=== PATIENT | female | born 1990 | race Caucasian/White ===

== ENCOUNTER 2019-09-05 06:52 | Observation (INO) | payer BC ==
[2019-09-05 07:18] VITALS: BMI 28.1
[2019-09-05] MEDS ORDERED: SODIUM CHLORIDE 0.9% 500 ML INFUS.BAG IV ONE (07:56)
[2019-09-05] MEDS ORDERED: ACETAMINOPHEN 1000 MG/100 ML VIAL (NON FORMULARY) IVPB ONE (08:02)
--- NOTE | 2019-09-05 08:02 | PDOC ---
History of Present Illness - General Chief Complaint: Pain Stated Complaint: ABD PAIN Time Seen by Provider: 09/05/19 07:34 History Source: Patient Exam Limitations: Language Barrier - History of Present Illness Travel History: No Initial Comments: 09/05/19 08:09 28y F with PMH of Gallstones presenting to ED with complaints of RUQ abdominal pain that started suddenly 2h ago. Pain is constant and crampy. She has had similar pain in the past but not as strong. She says she had tacos and 2 glasses of whiskey at 2am today. She denies nausea, vomiting, diarrhea, hematuria, dysuria, chest pain, fevers. Endorses chills and some sob. Other than abdominoplasty 6y ago, she has not had any other surgeries. She has an IUD. She says she took ampicillin for the pain. PMD: PMH: see hpi PSH: see hpi Meds: none Allergies: nkda Past History - Past Medical History Allergies/Adverse Reactions: Allergies Allergy/AdvReac Type Severity Reaction Status Date / Time No Known Allergies Allergy Verified 09/05/19 07:15 Home Medications: Ambulatory Orders Pantoprazole Sodium [Protonix -] 40 mg PO DAILY #30 tablet.ec 09/05/19 COPD: No GI Disorders: Yes (gallstones) - Surgical History Abdominal Surgery: Yes (patric march) - Psycho Social/Smoking Cessation Hx Smoking History: Never smoked Have you smoked in the past 12 months: No Information on smoking cessation initiated: No Hx Alcohol Use: No Drug/Substance Use Hx: No Review of Systems - Review of Systems Constitutional: Yes: Chills. No: Fever Respiratory: Yes: Shortness of Breath Cardiac (ROS): No: Symptoms Reported ABD/GI: Yes: See HPI : No: Symptoms Reported Musculoskeletal: No: Symptoms Reported Integumentary: No: Symptoms Reported Neurological: No: Symptoms reported *Physical Exam - Vital Signs Last Vital Signs Temp Pulse Resp BP Pulse Ox 97.8 F 52 L 18 93/41 L 99 09/05/19 07:16 09/05/19 07:16 09/05/19 07:16 09/05/19 07:16 09/05/19 07:16 - Physical Exam General Appearance: Yes: Nourished, Appropriately Dressed. No: Apparent Distress HEENT: positive: EOMI, BAKARI. negative: Scleral Icterus (R), Scleral Icterus (L) Neck: positive: Trachea midline, Supple Respiratory/Chest: positive: Lungs Clear, Normal Breath Sounds. negative: Crackles, Rales, Rhonchi, Stridor, Wheezing Cardiovascular: positive: Regular Rhythm, Regular Rate, S1, S2. negative: Edema , JVD, Murmur Vascular Pulses: Dorsalis-Pedis (R): 2+, Doralis-Pedis (L): 2+ Gastrointestinal/Abdominal: positive: Normal Bowel Sounds, Soft, Tenderness ( epigastric, ruq tenderness. ), Other (negative ferris's). negative: Distended, Guarding, Rebound Musculoskeletal: negative: CVA Tenderness Extremity: positive: Normal Capillary Refill Integumentary: positive: Normal Color, Dry, Warm. negative: Jaundice Neurologic: positive: legal administrative assistant II-XII NML intact, Fully Oriented, Alert, Normal Mood/ Affect, Normal Response, Motor Strength / ED Treatment Course - LABORATORY CBC & Chemistry Diagram: 09/05/19 08:21 09/05/19 08:21 Medical Decision Making - Medical Decision Making 09/05/19 09:17 28y F with pmh of gallstones presenting to ER with ruq abdominal pain. She had tacos and whiskey. vitals; low bp, bradycardic. Afebrile ruq and epigastric tenderness. cholelithiasis, choledocolithasis, cholecystitis, pancreatitis, gastritis, pud -labs ordered -NS and ofirmev. -RUQ sono 09/05/19 15:30 chem wnl, no obstruction seen with labs. wbc 11.2 pt still having pain. ruq sono shows stone in gb, no fluid, no gbw thickening, cbd mildly dilated at 5mm. will admit for symptomatic cholelithiasis. Discharge - Discharge Information Problems reviewed: Yes Clinical Impression/Diagnosis: Cholelithiasis Qualifiers: Cholelithiasis location: gallbladder Cholecystitis presence: without cholecystitis Biliary obstruction: without biliary obstruction Qualified Code(s) : K80.20 - Calculus of gallbladder without cholecystitis without obstruction Condition: Improved - Admission Yes - Follow up/Referral - Patient Discharge Instructions - Post Discharge Activity
--- NOTE | 2019-09-05 08:12 | PDOC ---
Attending Attestation - Resident Resident Name: Chioma Morelos - ED Attending Attestation I have performed the following: I have examined & evaluated the patient, The case was reviewed & discussed with the resident, I agree w/resident's findings & plan, Exceptions are as noted - HPI HPI: 09/05/19 08:58 28 years old with past medical history significant for cholelithiasis presents to the ED with right upper quadrant pain. No fever no chills positive nausea no vomiting symptoms are moderate to severe persistent constant occurred after eating tacos last night - Physicial Exam PE: 09/05/19 08:58 Vitals: Triage Vital signs reviewedGeneral Appearance: No acute distress, well nourished well developed, Head: Atraumatic, Cardiac: Regular rate and rhythym, no murmurs, no rubs, no gallops, Lungs: Clear to auscultation bilateral, good air movement bilaterally, Abdomen: Soft, non distended, normal bowel sounds, right upper quadrant tenderness to palpation Extremities: Full range of motion to all extremities, no cyanosis, clubbing, or edema Psych: Normal mood, normal affect - Medical Decision Making 09/05/19 15:43 Symptomatic cholelithiasisWith dilated CBD slightly We will admit to medicine for further management
[2019-09-05] MEDS ORDERED: ACETAMINOPHEN INJECTION 100 ML IVPB ONE (08:22)
[2019-09-05 08:48] LABS: BASO % 0.3 % (0-2.0); EOS % 0.8 % (0-4.5); HEMATOCRIT 42.3 % (32.4-45.2); LYMPH % 23.6 % (8-40); MCH 29.9 pg (25.7-33.7); MCHC 33.1 g/dl (32.0-36.0); MEAN CELL VOLUME 90.4 fl (80-96); MEAN PLT VOLUME 8.1 fl (7.5-11.1); MONO % 4.3 % (3.8-10.2); PLATELET COUNT 308 K/MM3 (134-434); RBC 4.68 M/mm3 (3.60-5.2); RDW 13.2 % (11.6-15.6); WHITE BLOOD COUNT 11.6 K/mm3 (4.0-10.0)
[2019-09-05 09:14] LABS: INR 1.03 (0.83-1.09); PROTHROMBIN TIME (PATIENT) 12.2 SEC (9.7-13.0)
[2019-09-05 09:16] LABS: ALBUMIN 3.9 g/dl (3.4-5.0); BILIRUBIN,TOTAL 0.5 mg/dL (0.2-1); BLOOD UREA NITROGEN 17.5 mg/dL (7-18); CALCIUM 9.3 mg/dL (8.5-10.1); POTASSIUM 3.7 mmol/L (3.5-5.1); TOT PROT 7.3 g/dl (6.4-8.2)
[2019-09-05 09:17] LABS: ACTIVATED PTT 25.7 SECONDS (25.2-36.5)
[2019-09-05] MEDS ORDERED: PANTOPRAZOLE 40 MG TABLET PO ONE (12:13)
--- NOTE | 2019-09-05 12:22 | PN ---
Teaching Attending Note Name of Resident: Luis Platt ATTENDING PHYSICIAN STATEMENT I saw and evaluated the patient. I reviewed the resident's note and discussed the case with the resident. I agree with the resident's findings and plan as documented. SUBJECTIVE: Seen in ER; RUQ pain for 1-2 days with meals that has resolved at this point with negative exam. CBD without eulalio dilation upon review of imaging with surgery and LFTs within normal limits; no pericholecystic fluid/wall thickening. Does have gallstone present. No prior abdominal surgeries, no history alcohol abuse, stable hemodynamics. No PMH and denies taking home meds. Negative hcg. WBC only marginally over unl and likely reactive and not clinically significant. She is agreeable to go home. I discussed the case with Dr. Blanton and TEGAN James from surgery and they agree she is stable to followup as an outpatient and referral was given. She will be referred to Dr. Amaro for primary care and can have CMP prior to the followup. Risks for gallstones for this patient were weight, age, multiple children. Instructions have been requested to be provided in Monegasque. She is not nauseous or in any pain now; she can use PRN APAP at home for her symptoms and was given a trial of protonix in case there is an element of GERD that she can decide on continuing or not with her primary. PMH, PSH, FH, SH reviewed; agree with resident note. 10 sys ROS done and negative aside from HPI OBJECTIVE: Labs and imaging personally reviewed NAD AAOx3 resting in bed NT ND +BS; negative ferris's RRR s1/2 no mgr Lungs CTAB, w/ sym exp CN2-12 wnl, no fnd Normal mood, appropriate behavior US results discussed above Hospital course delineated above This note applies to same day admission h and p; for further details and exam for billing, etc. please see resident documentation which I will sign.
[2019-09-05 14:38] LABS: EPI CELLS 4.3 /HPF (0-5/HPF); HYALINE CASTS 0 /lpf (0-8); PH,URINE 6.5 (5.0-8.0); URINE APPEARANCE CLEAR; URINE BACTERIA 64.8 /hpf (NEGATIVE); URINE BILIRUBIN NEGATIVE (NEGATIVE); URINE COLOR YELLOW; URINE GLUCOSE (UA) NEGATIVE (NEGATIVE); URINE KETONE NEGATIVE (NEGATIVE); URINE LEUK ESTERASE TRACE (NEGATIVE); URINE NITRITE NEGATIVE (NEGATIVE); URINE PROTEIN NEGATIVE (NEGATIVE); URINE RBC 1 /hpf (0-4); URINE WBC 3 /hpf (0-5)
--- NOTE | 2019-09-05 14:43 | HP ---
CHIEF COMPLAINT: RUQ pain PCP: [phone] HISTORY OF PRESENT ILLNESS: 28 y/o F, pmh of liposuction, presented to the ED s/p non-radiating RUQ pain of 1 day duration, 01/22, that began early today morning while pt was sleeping and lasted for several hours, which improved in ED. Pt states that she had similar episodes 4-6 times in 3 months ago for which she saw her PCP who had told her to f/u with a surgeon for possible surgery. She was unable to follow up because she reports that she never got called for an appt. She reports eating tacos and 2 glasses of whiskey at 2am today. She admits to nausea but denies f/c/v/d/ sob, cp. ER course was notable for: (1)Protonix, tylenol (2)IVF (3)US abd- large mobile 2.1 cm stones in the GB without evidence of Acute cholecystitis. Echotexture of the liver Recent Travel: denies PAST MEDICAL HISTORY: IUD in placed, liposuction PAST SURGICAL HISTORY: IUD in placed, liposuction Social History: Smoking: denies Alcohol: occasionally Drugs: denies Allergies No Known Allergies Allergy (Verified 09/05/19 07:15) HOME MEDICATIONS: Home Medications Medication Instructions Recorded Pantoprazole Sodium [Protonix -] 40 mg PO DAILY #30 tablet.ec 09/05/19 REVIEW OF SYSTEMS CONSTITUTIONAL: Absent: fever, chills, diaphoresis, HEENT: Absent: rhinorrhea, nasal congestion, throat pain, CARDIOVASCULAR: Absent: chest pain, syncope, palpitations, RESPIRATORY: Absent: cough, shortness of breath, GASTROINTESTINAL: Admits: RUQ pain Absent: abdominal distension, nausea, vomiting, diarrhea, constipation GENITOURINARY: Absent: dysuria, frequency, NEUROLOGIC: Absent: headache, focal weakness or paresthesias, dizziness, unsteady gait, seizure, PSYCHIATRIC: Absent: anxiety, PHYSICAL EXAMINATION Vital Signs - 24 hr 09/05/19 09/05/19 07:16 12:47 Temperature 97.8 F 98.0 F Pulse Rate 52 L Pulse Rate [ 73 Right Radial] Respiratory 18 Rate Blood Pressure 93/41 L Blood Pressure 126/69 [Right Arm] O2 Sat by Pulse 99 98 Oximetry (%) GENERAL: Awake, alert, and fully oriented, in no acute distress. EYES: Pupils equal, round and reactive to light, NECK: Normal range of motion, supple without lymphadenopathy, LUNGS: Breath sounds equal, clear to auscultation bilaterally. No wheezes, and no crackles HEART: Regular rate and rhythm, normal S1 and S2 without murmur, rub or gallop. ABDOMEN: Soft, describes tenderness, not distended, BS+, no guarding, no rebound MUSCULOSKELETAL: No CVA tenderness. UPPER EXTREMITIES: 2+ pulses, warm, well-perfused. No peripheral edema. LOWER EXTREMITIES: 2+ pulses, warm, well-perfused. No peripheral edema. NEUROLOGICAL: Normal speech. Normal gait. SKIN: Warm, dry, normal turgor Laboratory Results - last 24 hr 09/05/19 09/05/19 09/05/19 08:21 08:21 08:21 WBC 11.6 H RBC 4.68 Hgb 14.0 Hct 42.3 MCV 90.4 MCH 29.9 MCHC 33.1 RDW 13.2 Plt Count 308 MPV 8.1 Absolute Neuts (auto) 8.2 H Neutrophils % 71.0 Lymphocytes % 23.6 Monocytes % 4.3 Eosinophils % 0.8 Basophils % 0.3 Nucleated RBC % 0 PT with INR 12.20 INR 1.03 PTT (Actin FS) 25.7 Sodium Potassium Chloride Carbon Dioxide Anion Gap BUN Creatinine Est GFR (CKD-EPI)AfAm Est GFR (CKD-EPI)NonAf Random Glucose Calcium Magnesium Total Bilirubin AST ALT Alkaline Phosphatase Total Protein Albumin Lipase Beta HCG, Quant < 1.0 Urine Color Urine Appearance Urine pH Ur Specific [place] Urine Protein Urine Glucose (UA) Urine Ketones Urine Blood Urine Nitrite Urine Bilirubin Urine Urobilinogen Ur Leukocyte Esterase Urine WBC (Auto) Urine RBC (Auto) Urine Casts (Auto) U Epithel Cells (Auto) Urine Bacteria (Auto) Blood Type Antibody Screen 09/05/19 09/05/19 09/05/19 08:21 08:21 13:05 WBC RBC Hgb Hct MCV MCH MCHC RDW Plt Count MPV Absolute Neuts (auto) Neutrophils % Lymphocytes % Monocytes % Eosinophils % Basophils % Nucleated RBC % PT with INR INR PTT (Actin FS) Sodium 139 Potassium 3.7 Chloride 105 Carbon Dioxide 27 Anion Gap 8 BUN 17.5 Creatinine 1.0 Est GFR (CKD-EPI)AfAm 88.17 Est GFR (CKD-EPI)NonAf 76.07 Random Glucose 106 Calcium 9.3 Magnesium 2.0 Total Bilirubin 0.5 AST 35 ALT 28 Alkaline Phosphatase 101 Total Protein 7.3 Albumin 3.9 Lipase 106 Beta HCG, Quant Urine Color Yellow Urine Appearance Clear Urine pH 6.5 Ur Specific [place] 1.013 Urine Protein Negative Urine Glucose (UA) Negative Urine Ketones Negative Urine Blood Negative Urine Nitrite Negative Urine Bilirubin Negative Urine Urobilinogen 1.0 Ur Leukocyte Esterase Trace Urine WBC (Auto) 3 Urine RBC (Auto) 1 Urine Casts (Auto) 0 U Epithel Cells (Auto) 4.3 Urine Bacteria (Auto) 64.8 Blood Type A POSITIVE Antibody Screen Negative ASSESSMENT/PLAN: 28 y/o F, pmh of liposuction, presented to the ED s/p non-radiating RUQ pain of 1 day duration, 01/22, that began early today morning is being admitted for biliary colic 2/2 to Choledocholithiasis seen on US #Biliary Colic 2/2 to Choledocholithiasis IVF Protonix Tylenol for pain EKG US: 2.1 cm mobile stones in the GB without evidence of acute cholecystitis, echotexures seen on liver UA ordered- will f/u Discussed with pt the need to f/u outpt for elective surgery Pt referred to Dr. Blanton for f/u Pt given [facility] clinic PCP- Dr. Amaro #DVT ppx SCDs #GIppx Protonix #FEN monitor lytes IVF if needed Regular diet Dispo: pt is stable, d/c planning in process, will wait for UA for d/c Visit type - Emergency Visit Emergency Visit: Yes ED Registration Date: 09/05/19 Care time: The patient presented to the Emergency Department on the above date and was hospitalized for further evaluation of their emergent condition. - New Patient This patient is new to me today: Yes Date on this admission: 09/05/19 - Critical Care Critical Care patient: No ATTENDING PHYSICIAN STATEMENT I saw and evaluated the patient. I reviewed the resident's note and discussed the case with the resident. I agree with the resident's findings and plan as documented. SUBJECTIVE: OBJECTIVE: ASSESSMENT AND PLAN:
--- NOTE | 2019-09-05 15:50 | DS ---
Physical Exam: SUBJECTIVE: Patient seen and examined. Pt asymptomatic at the moment and afebrile. No overnight events. Denies f/c/n/v/d/sob. OBJECTIVE: Vital Signs Period Temp Pulse Resp BP Sys/[place] Pulse Ox Last 24 Hr 97.8 F-98.0 F 52-73 18 93-126/41-69 98-99 PHYSICAL EXAM GENERAL: Awake, alert, and fully oriented, in no acute distress. EYES: Pupils equal, round and reactive to light, NECK: Normal range of motion, supple without lymphadenopathy, LUNGS: Breath sounds equal, clear to auscultation bilaterally. No wheezes, and no crackles HEART: Regular rate and rhythm, normal S1 and S2 without murmur, rub or gallop. ABDOMEN: Soft, describes tenderness, not distended, BS+, no guarding, no rebound MUSCULOSKELETAL: No CVA tenderness. UPPER EXTREMITIES: 2+ pulses, warm, well-perfused. No peripheral edema. LOWER EXTREMITIES: 2+ pulses, warm, well-perfused. No peripheral edema. NEUROLOGICAL: Normal speech. Normal gait. SKIN: Warm, dry, normal turgor LABS Laboratory Results - last 24 hr 09/05/19 09/05/19 09/05/19 08:21 08:21 08:21 WBC 11.6 H RBC 4.68 Hgb 14.0 Hct 42.3 MCV 90.4 MCH 29.9 MCHC 33.1 RDW 13.2 Plt Count 308 MPV 8.1 Absolute Neuts (auto) 8.2 H Neutrophils % 71.0 Lymphocytes % 23.6 Monocytes % 4.3 Eosinophils % 0.8 Basophils % 0.3 Nucleated RBC % 0 PT with INR 12.20 INR 1.03 PTT (Actin FS) 25.7 Sodium Potassium Chloride Carbon Dioxide Anion Gap BUN Creatinine Est GFR (CKD-EPI)AfAm Est GFR (CKD-EPI)NonAf Random Glucose Calcium Magnesium Total Bilirubin AST ALT Alkaline Phosphatase Total Protein Albumin Lipase Beta HCG, Quant < 1.0 Urine Color Urine Appearance Urine pH Ur Specific [place] Urine Protein Urine Glucose (UA) Urine Ketones Urine Blood Urine Nitrite Urine Bilirubin Urine Urobilinogen Ur Leukocyte Esterase Urine WBC (Auto) Urine RBC (Auto) Urine Casts (Auto) U Epithel Cells (Auto) Urine Bacteria (Auto) Blood Type Antibody Screen 09/05/19 09/05/19 09/05/19 08:21 08:21 13:05 WBC RBC Hgb Hct MCV MCH MCHC RDW Plt Count MPV Absolute Neuts (auto) Neutrophils % Lymphocytes % Monocytes % Eosinophils % Basophils % Nucleated RBC % PT with INR INR PTT (Actin FS) Sodium 139 Potassium 3.7 Chloride 105 Carbon Dioxide 27 Anion Gap 8 BUN 17.5 Creatinine 1.0 Est GFR (CKD-EPI)AfAm 88.17 Est GFR (CKD-EPI)NonAf 76.07 Random Glucose 106 Calcium 9.3 Magnesium 2.0 Total Bilirubin 0.5 AST 35 ALT 28 Alkaline Phosphatase 101 Total Protein 7.3 Albumin 3.9 Lipase 106 Beta HCG, Quant Urine Color Yellow Urine Appearance Clear Urine pH 6.5 Ur Specific [place] 1.013 Urine Protein Negative Urine Glucose (UA) Negative Urine Ketones Negative Urine Blood Negative Urine Nitrite Negative Urine Bilirubin Negative Urine Urobilinogen 1.0 Ur Leukocyte Esterase Trace Urine WBC (Auto) 3 Urine RBC (Auto) 1 Urine Casts (Auto) 0 U Epithel Cells (Auto) 4.3 Urine Bacteria (Auto) 64.8 Blood Type A POSITIVE Antibody Screen Negative HOSPITAL COURSE: Date of Admission:09/05/19 28 y/o F, pmh of liposuction, presented to the ED s/p non-radiating RUQ pain of 1 day duration, 01/22, that began early today morning is being admitted for biliary colic 2/ to Choledocholithiasis seen on US showing 2.1 cm mobile stones in the GB without evidence of acute cholecystitis, echotexures seen on liver. Pt was started on IVF, Protonix and tylenol. Pt's symtpoms improved significantly in the ED, with no further pains. We discussed with pt the need to f/u with her surgeon, Dr. Blanton for further management including elective surgery. Pt was also given referral for [facility] clinic for PCP as Dr. Amaro. Pt was discharged home on Protonix and adviced to f/u with Dr. Blanton and Dr. Amaro. US: 2.1 cm mobile stones in the GB without evidence of acute cholecystitis, echotexures seen on liver UA negative Date of Discharge: 09/05/19 Minutes to complete discharge: 40 Discharge Summary Problems reviewed: Yes Reason For Visit: ACQUIRED DILATION OF COMMON BILE DUCT Current Active Problems Gall stones (Chronic) Condition: Improved - Instructions Diet, Activity, Other Instructions: You were seen in the ER for abdominal pain and were found to have gallstones without any infection. This can be managed as an outpatient and you are being sent home with instructions to followup with your surgeon within 1 week ( referring to Dr. Blanton, who the case was discussed with when you were in the ER). In addition you are being assigned to Dr. Amaro for primary care followup. To avoid further bouts of pain you are to avoid fatty foods and large meals. You can take PRN Tylenol or Advil for this. If you develop fevers, jaundice, or uncontrolled pain please come back to the ER You are being given Rx to recheck your liver function test prior to followup with your primary care/surgeon Diet: Low fat, low calorie Activity: Exercise 30 minutes at least 3-5 days/week Followup: -Dr. Amaro 3-5 days -Dr. Blanton 1 week *Please deliver these to the patient in Lao as this is her upper [place] language* Usted fue visto en la [facility] de emergencias por dolor abdominal y se descubri que javed clculos biliares sin ninguna infeccin. Butters se puede manejar mk paciente ambulatorio y se lo enviar a faustin hogar con instrucciones para hacer un seguimiento con faustin cirujano dentro de 1 semana (refirindose al Dr. Blanton, con quien se discuti el deidra cuando estaba en la k[facility] de emergencias). Adems, lo estn asignando al Dr. Amaro para el seguimiento de atencin primaria. Para evitar ms episodios de dolor, debe evitar los alimentos grasos y las comidas abundantes. Puede unique PRN Tylenol o Advil para esto. Si desarrolla fiebre, ictericia o dolor incontrolado, regrese a la kendall de emergencias Se le administrar Rx para volver a verificar faustin prueba de funcin heptica antes del seguimiento con faustin mdico de cabecera / cirujano Dieta: baja en grasas, baja en caloras Actividad: ejercicio 30 minutos al menos 3-5 huber / semana Seguimiento: -Dr. Amaro 3-5 huber - Ir 1 semana Referrals: Johnnie Amaro MD [Staff Physician] - 1 Week Ian Blanton MD [Staff Physician] - 1 Week Disposition: HOME - Home Medications Comprehensive Discharge Medication List: Ambulatory Orders Pantoprazole Sodium [Protonix -] 40 mg PO DAILY #30 tablet.ec 09/05/19 This patient is new to me today: Yes Date on this admission: 09/05/19 Emergency Visit: Yes ED Registration Date: 09/05/19 Care time: The patient presented to the Emergency Department on the above date and was hospitalized for further evaluation of their emergent condition. Critical Care patient: No - Discharge Referral Referred to [facility] No ATTENDING PHYSICIAN STATEMENT I saw and evaluated the patient. I reviewed the resident's note and discussed the case with the resident. I agree with the resident's findings and plan as documented. SUBJECTIVE: OBJECTIVE: ASSESSMENT AND PLAN:
[2019-09-05 16:26] VITALS: BP 135/69; PULSE 78; TEMP 97.2
--- NOTE | 2019-09-06 10:33 | EKG ---
Test Reason : Blood Pressure : / mmHG Vent. Rate : 064 BPM Atrial Rate : 064 BPM P-R Int : 130 ms QRS Dur : 074 ms QT Int : 400 ms P-R-T Axes : 043 076 041 degrees QTc Int : 412 ms NORMAL SINUS RHYTHM NONSPECIFIC T WAVE ABNORMALITY ABNORMAL ECG NO PREVIOUS ECGS AVAILABLE Confirmed by CAITIE RAMSEY, JANESSA ([id number]) on 09/06/2019 10:33:33 AM Referred By: Confirmed By:JANESSA BLOOD MD
== END 2019-09-05 16:29 | disposition home or self-care (01) ==
LOC: JER 06:52 → JERBED 11:33
PROVIDERS: ADMIT Internal Medicine; ATTEND Internal Medicine
PROC: 3E033NZ Introduction of Analgesics, Hypnotics, Sedatives into Peripheral Vein, Percutaneous Approach (ICD-10-PCS; principal; 2019-09-05)
PROC: 3E0337Z Introduction of Electrolytic and Water Balance Substance into Peripheral Vein, Percutaneous Approach (ICD-10-PCS; 2019-09-05)
DX: K80.20 Calculus of gallbladder without cholecystitis without obstruction (principal); R00.1 Bradycardia, unspecified; Z87.19 Personal history of other diseases of the digestive system; K83.9 Disease of biliary tract, unspecified; K76.89 Other specified diseases of liver
CPT/HCPCS: 36415; 76705-TC; 80053; 81003; 83690; 83735; 84702; 85025; 85610; 85730; 86850; 86900; 86901; 93005; 93010; 99285-25; G0378; J0131